=== PATIENT | female | born 1995 | race Caucasian/White ===

== ENCOUNTER 2024-12-05 13:28 | Emergency (ER) | payer BC, SELFPAY ==
[2024-12-05 13:29] VITALS: BP 120/85; PULSE 85; RESP 15; TEMP 36.2; O2SAT 98; BMI 24.0
[2024-12-05 14:22] LABS: Absolute Lymphocyte Count 1.38 X10^3/uL (0.83-4.51); Absolute Neutrophil Count 5.6 X10^3/uL (2.0-7.7); Basophil# 0.04 X10^3/uL; Basophil% 0.5 % (0-1); Eosinophil# 0.15 X10^3/uL; Hematocrit 39.4 % (37-47); Hemoglobin 13.3 g/dL (12.0-15.0); Lymphocyte # 1.38 X10^3/ul (0.83-4.51); Mean Corp Hgb Conc 33.8 g/dL (32-36); Mean Corpuscular Hgb 30.3 pg (27.0-32.0); Mean Corpuscular Volume 89.7 fL (81-99); Mean Platelet Vol. 10.1 fl (6.2-12.0); Monocyte# 0.46 X10^3/uL; NRBC Flagged by Analyzer 0 % (0-5); Neutrophil # 5.61 X10^3/uL (2.7-7.7); Neutrophil % 73.1 % (47-70); Platelet Count 239 K/mm3 (150-450); RBC Distribution Width CV 12.8 % (11.6-14.6); RBC Distribution Width SD 42.1 fl (35.1-43.9); Red Blood Count 4.39 M/mm3 (4.2-5.4); White Blood Count 7.7 K/mm3 (4.4-11.0)
--- NOTE | 2024-12-05 14:33 | EDS_ITS ---
HPI HPI - GI History of Present Illness Chief Complaint: Abd Pain Informant: patient Narrative Narrative: Very pleasant 29-year-old female presenting to the emergency room for the evaluation of right lower quadrant abdominal pain. Patient states that she went to dinner last night and ate pork tacos from a [place] restaurant. After dinner she began to have an ache in the right lower quadrant of her abdomen. She states that she was uncomfortable for most of the night. She states that she has been getting increasing waves of intensity of the right lower quadrant becoming from achiness to sharp. She notes nausea and some lightheadedness. Patient notes that it radiates towards her back and up towards the lower rib cage. She notes that she is urinating less but nothing different with the urine on the way it looks and no dysuria. She has not had a bowel movement today. She notes that history of ovarian cyst but it was a long time ago. No prior abdominal surgeries. No reported fevers. There is a familial history of kidney stones but no personal history. PFSH PFSH Home Medications ?Medication ?Instructions ?Recorded ?Last Taken ?Type buspirone 7.5 mg tablet 7.5 mg PO PRN PRN depression 12/05/24 Unknown History ketorolac 10 mg tablet 10 mg PO Q8H PRN pain #15 ta bs 12/05/24 Unknown Rx ondansetron 4 mg disintegrating 4 mg PO Q6H PRN PRN Na usea #15 tabs 12/05/24 Unknown Rx tablet Allergy/AdvReac Type Severity Reaction Status Date / Time No Known Allergies Allergy Verified 12/05/24 13:32 Surgical History H/O LEEP Hx of tonsillectomy Social History Smoking Status: Never smoker ROS ROS ED Constitutional Constitutional ED: Denies chills, fever(s), sweats or weight loss Eyes Eyes: Denies change in vision or diplopia ENT ENT ED: Denies ear pain, rhinorrhea or sore throat Cardiovascular Cardiovascular: Denies chest pain, orthopnea, palpitations or racing heartbeat Respiratory/Chest Respiratory/Chest: Denies cough, dyspnea or orthopnea Gastrointestinal Gastrointestinal: Reports abdominal pain and nausea; Denies diarrhea or vomiting Genitourinary Genitourinary ED: Denies dysuria, hematuria or urinary frequency Musculoskeletal Musculoskeletal: Reports back pain; Denies arthralgias, myalgias or neck pain Integumentary Denies abscess or rash Neurologic Neurologic: Denies headache(s) or weakness Psychiatric Psychiatric: Denies anxiety, depression, suicidal ideation or suicidal thoughts Endocrine Endocrinology: Denies polydipsia, polyphagia or polyuria Allergic/Immunologic Allergic/Immunologic ED: Denies mouth swelling, tongue swelling or urticaria EXAM Physical Exam Const Vital Signs: 12/05/24 13:29 12/05/24 16:22 Temperature 97.1 F L Temperature Source Oral Pulse Rate 85 74 Respiratory Rate 15 15 Blood Pressure 120/85 H 111/69 Blood Pressure Mean 96 83 Pulse Ox 98 99 Oxygen Delivery Method Room Air Room Air Positive well nourished and well developed General Appearance ED: well developed and NAD HEENT Reports normocephalic, head/scalp atraumatic and moist mucous membranes Eyes PERRL and EOMs intact bilaterally Neck no lymphadenopathy, supple and no JVD Resp normal respiratory effort and clear to auscultation bilaterally Cardio regular rate, regular rhythm and no murmurs GI non-distended Auscultation: normoactive bowel sounds Palpation: soft and tender RLQ; Negative for guarding, rigid or rebound tenderness present Back/Spine no CVA tenderness and normal ROM Extremity normal to inspection General Extremety ED: Negative for edema General Extremity: Negative for edema Neuro oriented x3 and CN's II-XII intact bilaterally Sensorium / Orientation: alert Motor Exam: strength 5/5 throughout Psych mental status grossly normal Mood & Affect: Negative for depressed or tearful Skin no rashes or lesions noted and no wounds MDM MDM MDM Narrative Medical decision making narrative: Differential diagnosis includes but not limited to appendicitis colitis malignancy ovarian cyst kidney stone epiploic appendagitis mesenteric adenitis intussusception UTI Basic blood work is obtained and essentially negative. Urinalysis with no overt infection or hematuria. CT abdomen pelvis was obtained. Normal-appearing appendix. She does have nephrolithiasis but no obvious ureterolithiasis. Patient received a dose of Toradol as well as Zofran. Patient was updated with the above findings. At this point we will discharge her home. I can write for some Toradol and Zofran as needed return if worsening or concerns. Patient is comfortable this plan. History & Record Review Discussion w/independent historian: Patient Lab Data Attestation: I reviewed the patient's lab results. Labs: Laboratory Results - last 24 hr 12/05/24 12/05/24 14:12 16:40 WBC 7.7 RBC 4.39 Hgb 13.3 Hct 39.4 MCV 89.7 MCH 30.3 MCHC 33.8 RDW Std Deviation 42.1 RDW Coeff of [place] 12.8 Plt Count 239 MPV 10.1 Immature Gran % (Auto) 0.400 Neut % (Auto) 73.1 H Lymph % (Auto) 18.0 L [place] % (Auto) 6.0 Eos % (Auto) 2.0 Baso % (Auto) 0.5 Absolute Neuts (auto) 5.6 Absolute Lymphs (auto) 1.38 Nucleated RBC % 0 Sodium 140 Potassium 3.9 Chloride 104 Carbon Dioxide 24.7 Anion Gap 11 BUN 15 Creatinine 1.18 Estim Creat Clear Calc 56.80 Est GFR (MDRD) Non-Af 63 BUN/Creatinine Ratio 12.5 Glucose 100 H Calcium 9.0 Total Bilirubin 0.35 AST 21 ALT 9 Alkaline Phosphatase 56 Total Protein 6.8 Albumin 4.6 Globulin 2.2 Albumin/Globulin Ratio 2.1 Lipase 27 Serum , Qual NEGATIVE Urine Color Yellow Urine Clarity Cloudy Urine pH 8.0 Ur Specific [place] 1.015 Urine Protein 15 H Urine Glucose (UA) Normal Urine Ketones Negative Urine Occult Blood Negative Urine Nitrite Negative Urine Bilirubin Negative Urine Urobilinogen Normal Ur Leukocyte Esterase Negative Urine RBC 0 SEEN Urine WBC 0-5 SEEN Ur Squamous Epith Cells 0-5 SEEN Amorphous Sediment 2+ URATE Urine Bacteria RARE Urine Mucus 0 SEEN Radiography Diagnostic Testing: Clinical Impression(s) from Imaging Studies Abdomen/Pelvis CT 12/05/24 15:10 IMPRESSION: 1. Normal appendix. 2. Hepatomegaly with fatty infiltration. 3. Bilateral renal pelvic calculi, largest measuring up to 5 mm without obstruction. 4. Fecal retention in the colon consistent with constipation. 5. Umbilical hernia containing fat. Reading Location: [facility] Discharge Plan Triage Chief Complaint: Abd Pain ED Provider: Pritesh Pearson Dx/Rx/DC Orders Clinical Impression: Abdominal pain Instructions: Abdominal Pain Prescriptions: New ketorolac 10 mg tablet 10 mg PO Q8H PRN (Reason: pain) Qty: 15 0RF Rx Instructions: maximum total duration of 5 days from all oral, intranasal, or parenteral formulations ondansetron 4 mg tablet,disintegrating 4 mg PO Q6H PRN PRN (Reason: Nausea) Qty: 15 0RF No Action buspirone 7.5 mg tablet 7.5 mg PO PRN PRN (Reason: depression) Primary Care Provider: SWAPNA COTO Referrals: Care Physician,No Primary [Non-Staff] - Activity Restrictions/Additional Instructions: Follow-up with PCP as needed. Please return to emergency if you have any worsening or concerns. Print Language: Sinhala Disposition Disposition: Home, Self Care
[2024-12-05 14:50] LABS: ALB/GLOB Ratio 2.1 RATIO (0.9-2.4); AST(SGOT) 21 U/L (<=31); Alanine Aminotransfer ALT/SGPT 9 U/L (<=34); Albumin, Serum 4.6 g/dL (3.5-5.0); Alkaline Phosphatase 56 U/L (35-104); Anion Gap 11 (5-15); BUN 15 mg/dL (4-19); BUN/Creat Ratio 12.5 RATIO (10-20); Carbon Dioxide 24.7 mmol/L (21.0-32.0); Chloride 104 mmol/L (98-108); Creatinine, Serum 1.18 mg/dL (0.70-1.20); EST Glomerular Filtration Rate 63 (>60); Globulin 2.2 g/dL (2.2-4.2); Glucose 100 mg/dL (70-99); Lipase 27 U/L (13-75); Potassium 3.9 mmol/L (3.3-5.1); Protein, Total 6.8 g/dL (5.9-8.4); Sodium Level 140 mmol/L (133-145); Total Bilirubin 0.35 mg/dL (0.00-1.30)
[2024-12-05 14:53] LABS: Internal QC Validated? YES +Cl - CLEAR BKGD; Pregnancy, Serum, hCG Quali. NEGATIVE Negative; Record Kit Lot#, Serum Preg. 947241
--- NOTE | 2024-12-05 15:10 | CT_ITS ---
EXAM: CT Abdomen and Pelvis Without Intravenous Contrast CLINICAL INDICATION: RIGHT FLANK/RLQ PAIN TECHNIQUE: Axial computed tomography images of the abdomen and pelvis without intravenous contrast. This CT exam was performed using one or more of the following dose reduction techniques: automated exposure control, adjustment of the mA and/or kV according to patient size, and/or use of iterative reconstruction technique. COMPARISON: No relevant prior studies available. FINDINGS: LUNG BASES: Unremarkable. No mass. No consolidation. ABDOMEN: LIVER: Hepatomegaly with fatty infiltration. GALLBLADDER AND BILE DUCTS: Unremarkable. No calcified stones. No ductal dilation. PANCREAS: Unremarkable. No ductal dilation. SPLEEN: Unremarkable. No splenomegaly. ADRENALS: Unremarkable. No mass. KIDNEYS AND URETERS: Bilateral renal pelvic calculi, largest measuring up to 5 mm without obstruction. STOMACH AND BOWEL: Fecal retention in the colon consistent with constipation. No obstruction. No mucosal thickening. PELVIS: APPENDIX: Normal appendix. BLADDER: Unremarkable. No stones. REPRODUCTIVE: Unremarkable as visualized. ABDOMEN and PELVIS: INTRAPERITONEAL SPACE: Unremarkable. No free air. No significant fluid collection. BONES/JOINTS: No acute fracture. No dislocation. SOFT TISSUES: Umbilical hernia containing fat. VASCULATURE: Multiple calculi in the pelvis are felt to be phleboliths. No abdominal aortic aneurysm. LYMPH NODES: Unremarkable. No enlarged lymph nodes.
[2024-12-05] MEDS: Ondansetron 4 MG/2 ML Vial IV (16:16)
[2024-12-05] MEDS: 0.9% Normal Saline (1000mL) 1,000 ML 999 ML IV (16:16)
[2024-12-05] MEDS: Ketorolac 30 MG/ML Syringe IV (16:16)
[2024-12-05 16:22] VITALS: BP 111/69; PULSE 74; RESP 15; O2SAT 99
[2024-12-05 16:46] LABS: Mucous, Urine 0 SEEN /hpf (<or=2+); Red Blood Cells-Urine 0 SEEN /hpf (0-5)
[2024-12-05 17:10] LABS: Color, Urine Yellow (Yellow); Glucose, Dipstick Normal (Normal); Ketone-Dipstick Negative (Negative); Leukocyte Esterase-Dipstick Negative /ul (Negative); Nitrite-Dipstick Negative (Negative); Occult Blood-Urine Negative /ul (Negative); Protein-Dipstick 15 mg/dl (Negative); Specific Gravity, Urine 1.015 (1.002-1.030); Urine Bilirubin Dipstick Negative (Negative); Urine Clarity Cloudy (Clear); Urine Urobilinogen Normal (Normal)
[2024-12-05 17:40] LABS: Amorphous Sediment 2+ URATE; Squamous Epithelial Cells - UA 0-5 SEEN /hpf (5-10); White Blood Cells 0-5 SEEN /hpf (0-5)
[2024-12-05 17:42] LABS: Bacteria RARE /hpf (None Seen)
[2024-12-05 17:56] VITALS: BP 114/75; PULSE 69; RESP 16; TEMP 36.8; O2SAT 100
== END 2024-12-05 17:57 | disposition home or self-care (01) ==
PROVIDERS: Emergency Provider Emergency Medicine; PCP Nurse Practitioner Family; Visit Provider Emergency Medicine
DX: R10.9 Unspecified abdominal pain (principal); Z79.899 Other long term (current) drug therapy
CPT/HCPCS: 74176; 80053; 81001; 83690; 84703; 85025; 96361; 96374; 96375; 99283; A4216; J2405